=== PATIENT | female | born 1970 | race Caucasian/White ===

== ENCOUNTER 2020-02-19 07:24 | Emergency (ER) | payer OTHER ==
[~2020-02-19] VITALS: Ht 180.3 cm; Wt 83.9 kg
[~2020-02-19 07:24] MED LIST: TAPAZOLE5 MG PO
[2020-02-19] MEDS ORDERED: ZOLPIDEM TART12.5 MG PO (08:08)
[2020-02-19] MEDS ORDERED: DOXYCYCLINE 10100 M2 PO (08:08)
[2020-02-19] MEDS ORDERED: BETAMETHASONE D50 G2 TOP (08:08)
[2020-02-19] MEDS ORDERED: ALPRAZOLAM 0.50.5 M1 PO (08:08)
[2020-02-19] MEDS ORDERED: ONDANSETRON HCL4 M3 PO (08:08)
[2020-02-19] MEDS ORDERED: PERCOCET 10-321 EACH PO (08:09)
[2020-02-19] MEDS ORDERED: METOPROLOL SUCC50 MG PO (08:09)
[2020-02-19 08:50] LABS: ABSOLUTE NEUTROPHILS 12.8 thou/uL (1.4-8.2); BASOPHILS 0.2 % (0.0-2.0); EOSINOPHILS 0.1 % (0.0-3.0); HEMOGLOBIN 14.1 gm/dL (12.0-15.0); MCH 27.3 pg (26.0-34.0); MCHC 33.4 g/dL (28.0-37.0); MCV 81.7 fL (80.0-100.0); MONOCYTES 5.4 % (1.0-8.0); PLATELET COUNT 393 thou/uL (150-400); POLYS 88.3 % (36.0-66.0); RBC 5.14 mil/uL (4.20-5.00); RDW 14.5 % (10.5-14.5); WBC 14.5 thou/uL (4.0-11.0)
[2020-02-19 08:58] LABS: CALCIUM 9.7 mg/dL (8.5-10.1); CREATININE 0.8 mg/dL (0.6-1.0); POTASSIUM 3.3 mmol/L (3.5-5.1)
[2020-02-19 09:01] LABS: URINE BLOOD NEGATIVE (Negative); URINE CLARITY CLEAR; URINE GLUCOSE-RANDOM* NEGATIVE (Negative); URINE KETONES 1+ (Negative); URINE LEUKOCYTES-REFLEX NEGATIVE (Negative); URINE NITRITE-REFLEX NEGATIVE (Negative); URINE PROTEIN (DIPSTICK) TRACE (Negative); URINE SPECIFIC GRAVITY >= 1.030 (1.005-1.035); URINE UROBILINOGEN 0.2 E.U./dl (0.2-1.0)
[2020-02-19 09:03] LABS: ALBUMIN 4.5 g/dL (3.4-5.0); TOTAL BILIRUBIN 0.5 mg/dL (0.2-1.0); TOTAL PROTEIN 8.3 g/dL (6.4-8.2)
[2020-02-19 09:04] LABS: ICTOTEST (BILI CONFIRMATORY) Negative (Negative); URINE BILIRUBIN NEGATIVE (Negative); URINE COLOR AMBER
[2020-02-19] MEDS ORDERED: KEFLEX500 M1 PO (09:12)
[2020-02-19] MEDS ORDERED: ZOFRAN ODT4 MG PO (09:13)
[2020-02-19 10:03] VITALS: BP 122/89
== END 2020-02-19 10:00 | disposition home or self-care (01) ==
LOC: ER 07:24
PROVIDERS: Emergency Medicine
DX: R11.2 Nausea with vomiting, unspecified (principal); R50.9 Fever, unspecified; Z90.711 Acquired absence of uterus with remaining cervical stump; E03.9 Hypothyroidism, unspecified; Z98.890 Other specified postprocedural states; I10 Essential (primary) hypertension; L40.50 Arthropathic psoriasis, unspecified; Z79.899 Other long term (current) drug therapy; Z79.2 Long term (current) use of antibiotics; Z91.041 Radiographic dye allergy status

== ENCOUNTER 2020-07-24 07:39 | Emergency (ER) | payer OTHER ==
[~2020-07-24] VITALS: Ht 165.1 cm; Wt 77.1 kg
[~2020-07-24 07:39] MED LIST changes: +ALPRAZOLAM 0.50.5 M1 PO; +BETAMETHASONE D50 G2 TOP; +DOXYCYCLINE 10100 M2 PO; +KEFLEX500 M1 PO; +METOPROLOL SUCC50 MG PO; +ONDANSETRON HCL4 M3 PO; +PERCOCET 10-321 EACH PO; +ZOFRAN ODT4 MG PO; +ZOLPIDEM TART12.5 MG PO
[2020-07-24 07:42] VITALS: BP 150/80
[2020-07-24] MEDS ORDERED: MEDROLDOSEPACK PO (07:49)
== END 2020-07-24 08:29 | disposition home or self-care (01) ==
LOC: ER 07:39
DX: L40.9 Psoriasis, unspecified (principal); I10 Essential (primary) hypertension; E03.9 Hypothyroidism, unspecified; Z90.710 Acquired absence of both cervix and uterus; Z79.899 Other long term (current) drug therapy; Z79.2 Long term (current) use of antibiotics; Z91.040 Latex allergy status

== ENCOUNTER → 2020-08-19 | Outpatient (CLI) | payer OTHER ==
[~2020-08-19] MED LIST changes: +MEDROLDOSEPACK PO
[2020-08-19 10:54] LABS: ABSOLUTE NEUTROPHILS 4.4 thou/uL (1.4-8.2); HEMATOCRIT 37.3 % (37.0-47.0); HEMOGLOBIN 12.5 gm/dL (12.0-15.0); LYMPHOCYTES 19.3 % (24.0-44.0); MCH 28.6 pg (26.0-34.0); MCHC 33.5 g/dL (28.0-37.0); MCV 85.4 fL (80.0-100.0); MONOCYTES 8.7 % (1.0-8.0); PLATELET COUNT 307 thou/uL (150-400); RBC 4.36 mil/uL (4.20-5.00); RDW 15.2 % (10.5-14.5); WBC 6.2 thou/uL (4.0-11.0)
[2020-08-19 11:10] LABS: ALBUMIN 3.2 g/dL (3.4-5.0); CALCIUM 8.4 mg/dL (8.5-10.1); CREATININE 0.7 mg/dL (0.6-1.0); TOTAL BILIRUBIN 0.2 mg/dL (0.2-1.0); TOTAL PROTEIN 6.4 g/dL (6.4-8.2)
== END ==
LOC: LAB 10:00
PROVIDERS: ATTEND Psychiatry & Neurology Psychiatry
DX: Z51.81 Encounter for therapeutic drug level monitoring (principal); F31.61 Bipolar disorder, current episode mixed, mild; Z79.899 Other long term (current) drug therapy

== ENCOUNTER → 2020-11-08 | Outpatient (CLI) | payer OTHER ==
[2020-11-08 10:26] LABS: ABSOLUTE NEUTROPHILS 15.1 thou/uL (1.4-8.2); BASOPHILS 0.3 % (0.0-2.0); HEMATOCRIT 41.5 % (37.0-47.0); HEMOGLOBIN 13.8 gm/dL (12.0-15.0); LYMPHOCYTES 6.1 % (24.0-44.0); MCH 28.6 pg (26.0-34.0); MCHC 33.2 g/dL (28.0-37.0); MCV 86.1 fL (80.0-100.0); MONOCYTES 2.7 % (1.0-8.0); PLATELET COUNT 424 thou/uL (150-400); POLYS 90.9 % (36.0-66.0); RBC 4.82 mil/uL (4.20-5.00); RDW 14.3 % (10.5-14.5); WBC 16.6 thou/uL (4.0-11.0)
[2020-11-08 10:41] LABS: POTASSIUM 3.9 mmol/L (3.5-5.1); TOTAL BILIRUBIN 0.3 mg/dL (0.2-1.0); TOTAL PROTEIN 7.9 g/dL (6.4-8.2)
[2020-11-08 23:06] LABS: GLYCOHEMOGLOBIN (HGB A1C) 6.5 % (4.8-5.6)
== END ==
LOC: LAB 09:26
PROVIDERS: ATTEND Family Medicine
DX: L40.50 Arthropathic psoriasis, unspecified (principal); R63.5 Abnormal weight gain; R53.82 Chronic fatigue, unspecified; Z87.898 Personal history of other specified conditions; Z68.34 Body mass index [BMI] 34.0-34.9, adult

== ENCOUNTER → 2020-11-15 | Outpatient (CLI) | payer OTHER | LOC: ULTRA 15:11 | PROVIDERS: ATTEND Family Medicine | DX: R10.11 Right upper quadrant pain (principal) ==

== ENCOUNTER 2021-04-26 07:21 | Emergency (ER) | payer OTHER ==
[~2021-04-26] VITALS: Ht 165.1 cm; Wt 88.5 kg
[~2021-04-26 07:21] MED LIST changes: +DIPHEN12.5 MG/5 PO; +TORADOL 10 MG T10 MG PO
[2021-04-26 07:23] VITALS: BP 149/101
[2021-04-26] MEDS ORDERED: ACYCLOVIR 400400 MG PO (07:49)
[2021-04-26] MEDS ORDERED: MEDROLDOSEPACK PO (08:23)
== END 2021-04-26 08:31 | disposition home or self-care (01) ==
LOC: ER 07:21
DX: L40.50 Arthropathic psoriasis, unspecified (principal); B00.9 Herpesviral infection, unspecified; I10 Essential (primary) hypertension; E03.9 Hypothyroidism, unspecified; Z91.040 Latex allergy status; Z79.899 Other long term (current) drug therapy; Z98.890 Other specified postprocedural states; Z90.710 Acquired absence of both cervix and uterus

== ENCOUNTER → 2021-05-26 | Outpatient (CLI) | payer OTHER ==
[~2021-05-26] MED LIST changes: +ACYCLOVIR 400400 MG PO
[2021-05-26 11:01] LABS: ABSOLUTE NEUTROPHILS 2.4 thou/uL (1.4-8.2); BASOPHILS 0.8 % (0.0-2.0); EOSINOPHILS 2.1 % (0.0-3.0); HEMATOCRIT 40.2 % (37.0-47.0); HEMOGLOBIN 13.2 gm/dL (12.0-15.0); LYMPHOCYTES 27.3 % (24.0-44.0); MCH 27.6 pg (26.0-34.0); MCHC 32.7 g/dL (28.0-37.0); MCV 84.5 fL (80.0-100.0); MONOCYTES 10.2 % (1.0-8.0); PLATELET COUNT 308 thou/uL (150-400); POLYS 59.6 % (36.0-66.0); RBC 4.76 mil/uL (4.20-5.00); RDW 14.5 % (10.5-14.5); WBC 4.1 thou/uL (4.0-11.0)
[2021-05-26 11:18] LABS: ALBUMIN 4.1 g/dL (3.4-5.0); ANION GAP 12 mmol/L (7-16); BUN 13 mg/dL (7-18); CALCIUM 9.2 mg/dL (8.5-10.1); CHLORIDE 103 mmol/L (98-107); CO2 26 mmol/L (21-32); CREATININE 0.8 mg/dL (0.6-1.0); GLUCOSE 118 mg/dL (74-106); POTASSIUM 3.3 mmol/L (3.5-5.1); SGOT 10 U/L (15-37); SGPT 23 U/L (30-65); SODIUM 141 mmol/L (136-145); TOTAL BILIRUBIN 0.4 mg/dL (0.2-1.0); TOTAL PROTEIN 7.3 g/dL (6.4-8.2)
== END ==
LOC: LAB 10:18
PROVIDERS: ATTEND Psychiatry & Neurology Psychiatry
DX: F31.9 Bipolar disorder, unspecified (principal); L40.50 Arthropathic psoriasis, unspecified; L40.9 Psoriasis, unspecified